=== PATIENT | male | born 1945 | race Caucasian/White ===

== ENCOUNTER → 2020-11-23 | Outpatient (CLI) | payer MEDICARE ==
[~2020-11-23] MED LIST: CETIRIZINE HCL10 MG PO; COLACE 100MG C100 MG PO; ECOTRIN81 MG PO; FENOFIBRATE54 MG PO; IPRAT-ALBUT 0.5-3 ML INH; LIPITOR TAB 2020 MG PO; LISINOPRIL20 MG PO; NEURONTIN 100100 MG PO; NITROSTAT0.4 MG SL; OMEPRAZOLE20 MG PO; PROAIR HFA8.5 GM INH; SPIRIVA RESPIMAT4 GM INH; SYMBICORT 160-1 INHA INH; TOPROL XL25 MG PO
== END ==
LOC: HEART 5 13:58
DX: J44.9 Chronic obstructive pulmonary disease, unspecified (principal)
CPT/HCPCS: 94060; 94729